=== PATIENT | male | born 1965 | race Caucasian/White ===

== ENCOUNTER 2019-01-06 19:11 | Observation (INO) ==
[2019-01-06] MEDS ORDERED: GI Cocktail 40 ML EACH PO ONE (19:42)
[2019-01-06] MEDS ORDERED: 0.9 % Sodium Chloride 500 ML IVC ONE (19:44)
[2019-01-06] MEDS: Nitroglycerin 0.4 MG TAB.SUBL SL PRN (20:05)
[2019-01-06 20:14] LABS: Basophils % 0.3 %; Eosinophils # 0.3 K/mcL (0.0-0.6); Eosinophils % 2.6 %; Hematocrit 41.3 % (37.5-50.1); Immature Granulocytes % 0.4 % (0-4); Lymphocytes # 2.8 K/mcL (0.6-4.6); Lymphocytes % 29.4 %; Mean Corpuscular HGB Conc 36.3 g/dL (31.6-35.5); Mean Corpuscular Hemoglobin 31.8 pg (28.0-33.3); Mean Corpuscular Volume 87.5 fL (83.0-100.0); Mean Platelet Volume 11.5 fL (9.4-12.4); Monocytes # 0.7 K/mcL (0.0-1.3); Monocytes % 7.6 %; Neutrophils # 5.7 K/mcL (1.6-8.9); Platelet Count 189 K/mcL (140-400); Red Blood Count 4.72 M/mcL (4.19-5.50); Red Cell Distribution Width 11.5 % (11.5-14.5); Segmented Neutrophils % 59.7 %
[2019-01-06 20:18] LABS: Troponin I < 0.03 ng/mL (< 0.04)
[2019-01-06 20:19] LABS: Alanine Aminotransferase 21 Units/L (7-52); Albumin 4.8 g/dL (3.5-5.7); Albumin/Globulin Ratio 1.7 (1.1-2.2); Alkaline Phosphatase 76 Units/L (34-104); Aspartate Amino Transferase 20 Units/L (13-39); BUN/Creatinine Ratio 10 (6-26); Bilirubin,Direct 0.1 mg/dL (0.0-0.2); Bilirubin,Indirect 0.6 mg/dL (0.0-1.2); Bilirubin,Total 0.7 mg/dL (0.3-1.0); Blood Urea Nitrogen 10 mg/dL (6-20); Calcium 9.9 mg/dL (8.6-10.3); Carbon Dioxide 27 mEq/L (23-29); Chloride 99 mEq/L (98-107); Globulin 2.8 g/dL (2.4-3.5); Glucose 133 mg/dL (70-105); Lipase 30 Units/L (11-82); Osmolality,Calculated 281 (280-300); Potassium 3.8 mEq/L (3.5-5.1); Sodium 135 mEq/L (136-145); Total Protein 7.6 g/dL (6.4-8.9); eGFR For Non-African Americans > 60 (> 60)
--- NOTE | 2019-01-06 20:30 | Emergency Department Note ---
Addendum entered and electronically signed by Richie Cross DO 01/06/19 20:50: EKG shows sinus rhythm, rate of 52, normal axis, no acute ischemic change Original Note: Disposition Clinical Impression: Unstable angina pectoris Disposition: Admitted As Inpatient Condition: Fair Time of Disposition: 20:49 Chest Pain HPI - General Chief Complaint: ED Chest Pain Stated Complaint: CP Time Seen by Provider: 01/06/19 19:23 Source: patient Mode of arrival: ambulatory Limitations: no limitations Vital Signs Reviewed: Yes Nursing Notes Reviewed: Yes - History of Present Illness HPI Narrative: Patient presents to the ED with chief complaint of chest pain. States that it started a few days ago. He was seen here about a week ago and was admitted over night, but did not have any further cardiac testing. He was here last night and had an evaluation, but was discharged home. He describes the pain is in his xiphoid region and radiates up into his chest. States that it is a very intense pressure and fullness. States that it is consistent with his previous [place] in 2011 and 2012. He states that his cardiac enzymes were normal. At that time as well and they only found blockages on heart catheter. He denies any fever or chills. There is no other abdominal pain. There is no nausea, vomiting, diarrhea. No diaphoresis. No pain or swelling in his legs. He has been scoped last year and does not have any history of ulcers. Severity scale (1-10): 7 - Related Data Home Medications Medication Instructions Recorded Confirmed RX: Amlodipine Besylate 10 mg PO DAILY 06/05/18 06/05/18 RX: Isosorbide MONOnitrate (24 HR) 30 mg PO DAILY 06/05/18 06/05/18 [Imdur] RX: Lisinopril [Zestril] 20 mg PO DAILY 06/05/18 06/05/18 RX: Paroxetine HCl [Paxil] 40 mg PO DAILY 06/05/18 06/05/18 RX: Propranolol HCl 80 mg PO DAILY 06/05/18 06/05/18 RX: Ranolazine [Ranexa] 1,000 mg PO DAILY 06/05/18 06/05/18 RX: Rosuvastatin [Crestor] 40 mg PO HS 06/05/18 06/05/18 RX: hydroCHLOROthiazide 25 mg PO DAILY 06/05/18 06/05/18 [Hydrochlorothiazide] Previous Rx's Medication Instructions Recorded RX: Aspirin Enteric Coated 81 mg PO DAILY #30 tablet. 06/07/18 [Aspirin EC] RX: Isosorbide MONOnitrate (24 HR) 60 mg PO DAILY #30 tab.er.24h 06/07/18 [Imdur] RX: Clopidogrel [Plavix] 75 mg PO DAILY #30 tablet 01/01/19 RX: Omeprazole [PriLOSEC] 40 mg PO DAILY@0630 #30 capsule. 01/01/19 Dicyclomine [Bentyl] 10 mg PO QID #20 capsule 01/06/19 Ondansetron ODT [Zofran ODT] 4 mg SL Q4HR #12 tab.rapdis 01/06/19 Allergies Allergy/AdvReac Type Severity Reaction Status Date / Time No Known Allergies Allergy Verified 01/06/19 19:18 Review of Systems: As reviewed in the HPI. All other systems reviewed are negative or normal. Chest Pain PMH - Past Medical History Medical history: Reports: coronary artery disease, hyperlipidemia, hypertension, myocardial infarction Surgical history: Reports: angioplasty/stent Psychiatric history: Reports: anxiety, depression - Social History Smoking Status: Former smoker Alcohol use: Reports: occasionally Drug use: Reports: none Physical Exam CONSTITUTIONAL: [well appearing, alert and in no acute distress] EYES: [EOMI, clear conjunctiva, PERRLA] HENT: [Normocephalic, atraumatic, moist mucus membranes, normal oropharynx] NECK: [normal inspection, full ROM, trachea midline, no obvious swelling] PULMONARY: [normal lung sounds bilaterally, normal chest rise and fall, no respiratory distress or stridor, no wheezes, no rales, no rhonchi CARDIOVASCULAR: [regular rate, regular rhythm, normal heart sounds, no murmurs, distal extremities are warm and well perfused] GASTROINSTESTINAL: [soft, non-tender, non-rigid, non-distended, no guarding, no rebound, normal bowel sounds] GENITOURINARY/RECTAL: [deferred] NEUROLOGIC: [Alert, oriented x3, normal speech, moves all extremities] EXTREMITIES: [Normal inspection, full ROM, no tenderness, no pedal edema, normal capillary refill] MUSCULOSKELETAL: [no gross deformities, atraumatic] SKIN: [No cyanosis, no diaphoresis, normal color, warm, no rash] PSYCHIATRIC: [normal mood and affect] - General Limitations: no limitations General appearance: alert, in no apparent distress Course Course Narrative: Patient presenting with his anginal equivalent. Patient does have left leg shaking, but does induce a rhythm on the monitor that looks like V. tach. I have not seen him have any suggestion of V. tach. When he is not moving his leg. However, he is having his anginal equivalent of chest pain that is been relieved by nitroglycerin, so we will start him on heparin drip and admitted in the hospital service - Reevaluation(s) Reevaluation #1: Workup is negative. He is still having pain. He states this is the same pain he had when he had his heart attacks. Spoke with hospitalist and was agreeable with starting heparin drip. We will admit and likely have cardiology see him in the morning for possible heart catheter. Vital Signs Temperature 97.6 F 01/06/19 19:19 Pulse Rate 57 01/06/19 19:19 Respiratory Rate 20 01/06/19 19:19 Blood Pressure 116/73 01/06/19 19:19 O2 Sat by Pulse Oximetry 99 01/06/19 19:19 Temperature 97.6 F 01/06/19 19:30 Pulse Rate 61 01/06/19 20:08 Respiratory Rate 11 01/06/19 20:08 Blood Pressure 121/76 01/06/19 20:08 O2 Sat by Pulse Oximetry 96 01/06/19 20:08 Oxygen Delivery Oxygen Delivery Room Air Chest Pain - Lab Data Result diagrams: 01/06/19 19:30 01/06/19 19:30 Lab Results 01/06/19 01/06/19 Range/Units 19:30 19:30 WBC 9.6 (4.3-11.1) K/mcL RBC 4.72 (4.19-5.50) M/mcL Hgb 15.0 (12.9-16.9) g/dL Hct 41.3 (37.5-50.1) % MCV 87.5 (83.0-100.0) fL MCH 31.8 (28.0-33.3) pg MCHC 36.3 H (31.6-35.5) g/dL RDW 11.5 (11.5-14.5) % Plt Count 189 (140-400) K/mcL MPV 11.5 (9.4-12.4) fL Immature Gran % 0.4 (0-4) % Seg Neutrophils % 59.7 % Lymphocytes % 29.4 % Monocytes % 7.6 % Eosinophils % 2.6 % Basophils % 0.3 % Neutrophils # 5.7 (1.6-8.9) K/mcL Lymphocytes # 2.8 (0.6-4.6) K/mcL Monocytes # 0.7 (0.0-1.3) K/mcL Eosinophils # 0.3 (0.0-0.6) K/mcL Basophils # 0.0 (0.0-0.2) K/mcL Sodium 135 L (136-145) mEq/L Potassium 3.8 (3.5-5.1) mEq/L Chloride 99 (98-107) mEq/L Carbon Dioxide 27 (23-29) mEq/L BUN 10 (6-20) mg/dL Creatinine 1.01 (0.70-1.30) mg/dL Est GFR ( Amer) > 60 (> 60) Est GFR (Non-Af Amer) > 60 (> 60) BUN/Creatinine Ratio 10 (6-26) Glucose 133 H (70-105) mg/dL Calculated Osmolality 281 (280-300) Calcium 9.9 (8.6-10.3) mg/dL Total Bilirubin 0.7 (0.3-1.0) mg/dL Direct Bilirubin 0.1 (0.0-0.2) mg/dL Indirect Bilirubin 0.6 (0.0-1.2) mg/dL AST 20 (13-39) Units/L ALT 21 (7-52) Units/L Alkaline Phosphatase 76 (34-104) Units/L Troponin I < 0.03 (< 0.04) ng/mL Serum Total Protein 7.6 (6.4-8.9) g/dL Albumin 4.8 (3.5-5.7) g/dL Globulin 2.8 (2.4-3.5) g/dL Albumin/Globulin Ratio 1.7 (1.1-2.2) Lipase 30 (11-82) Units/L Attestation Statement - Attestation Attestation: Resident Attestation: I examined this patient and my medical decision making was reviewed with the Resident Physician. I agree with the documented findings, disposition and treatment plan as described except to the extent set forth below. We independently had [id number] contact with the patient. Patient presenting for evaluation of chest pain. Patient has significant cardiac history. Further cardiac evaluation initiated. He was seen earlier in the day for abdominal complains. Patient states this is different. Patient did not improve with GI cocktail during visit. Awake, no acute distress, regular rate and rhythm, clear to auscultation bilaterally, abdomen soft nontender palpation.
[2019-01-06] MEDS ORDERED: *HR* Heparin 5,000 UNIT/ML VIAL IVP ONE (20:47)
[2019-01-06] MEDS ORDERED: Heparin 25,000 UNIT/500 ML D5W 25,000 UNIT/500 ML BAG IVC SCH (21:00)
[2019-01-07] MEDS: Nitroglycerin 0.4 MG TAB.SUBL SL PRN ×3 (01:02→01:23)
[2019-01-07] MEDS: *HR* Morphine 2 MG/ML SYRINGE IVP PRN ×2 (01:28→06:34)
[2019-01-07] MEDS ORDERED: Naloxone 0.4 MG/ML INJ IVP PRN (01:31)
--- NOTE | 2019-01-07 01:40 | Internal Med History&Physical ---
Date of Encounter: 01/07/19 Time of Encounter: 02:20 Internal Medicine - H&P: HPI Chief complaint: Chest pain Admitted From: Emergency Dept Plans for Post Hospital Care: Home History of present illness: Mr. Mccabe is a 53 year old male Patient presented to the emergency room with chest pain. He says it started a few days ago, is in the center of his chest and radiates up into his upper chest. He was admitted here to the hospital about a week ago, was monitored but did not receive any further cardiac testing. He describes the pain as pressure as well as fullness. It is similar to his previous [place] in 2013, and states at that time his cardiac enzymes were normal but he ended up having a heart catheter which revealed coronary disease. In the emergency room, patient's vital signs were within normal limits, CBC and BMP were both within normal limits as well. His initial troponin was undetectable. Chest x-ray revealed no acute cardiopulmonary process. EKG performed in the ER showed sinus rhythm with no acute ischemic changes. He was given a dose of nitroglycerin as well as a GI cocktail. 1 L of normal saline was also given and he was started on a heparin drip due to his history of undetectable troponins with cardiac disease. He was sent to the medical floor for further management. Upon arrival to the medical floor, patient's chest pain continued. Repeat EKG showed sinus bradycardia with a probable lateral myocardial infarction, likely old. 2 mg IV morphine was ordered for his pain. Pain has started to improve. Patient states that he has been having this pain on and off for the last 10 da ys. He says that the nitroglycerin actually made his pain worse. He denies abdominal pain, nausea, vomiting, diarrhea and constipation. He does have a significant family history of coronary artery disease, all members of his family have similar presentation with a troponin negative finding on their workups as well. Past Med Surg Social Fam HX - Past Medical History Medical history: coronary artery disease, hyperlipidemia, hypertension, myocardial infarction Additional medical history: x8 stents ([place], [place]) Psychiatric history: anxiety, depression - Past Surgical History Surgical History: angioplasty/stent Additional surgical history: plantar cyst removal, dermoid cyst removal, tympanoplasty R ear, 8 cardiac stents - Social History Smoking Status: Former smoker Smokeless Tobacco Status: No Alcohol use: occasionally Drug use: none - Family History Mother Living Status: Still Living Hx Family Cardiac Disorders: Yes (HTN) Father Living Status: Hx Family Cardiac Disorders: Yes (CAD, [place], Open heart surgery x2) Brother Living Status: Still Living Hx Family Cardiac Disorders: Yes (CAD) Sister Living Status: Still Living Hx Family Cardiac Disorders: Yes (CAD) Internal Medicine - H&P: Meds Amlodipine Besylate 10 mg PO DAILY 06/05/18 [History] Isosorbide MONOnitrate (24 HR) [Imdur] 30 mg PO DAILY 06/05/18 [History] Lisinopril [Zestril] 20 mg PO DAILY 06/05/18 [History] Paroxetine HCl [Paxil] 40 mg PO DAILY 06/05/18 [History] Propranolol HCl 80 mg PO DAILY 06/05/18 [History] Ranolazine [Ranexa] 1,000 mg PO DAILY 06/05/18 [History] Rosuvastatin [Crestor] 40 mg PO HS 06/05/18 [History] hydroCHLOROthiazide [Hydrochlorothiazide] 25 mg PO DAILY 06/05/18 [History] Aspirin Enteric Coated [Aspirin EC] 81 mg PO DAILY #30 tablet. 06/07/18 [Rx] Isosorbide MONOnitrate (24 HR) [Imdur] 60 mg PO DAILY #30 tab.er.24h 06/07/18 [Rx] Clopidogrel [Plavix] 75 mg PO DAILY #30 tablet 01/01/19 [Rx] Omeprazole [PriLOSEC] 40 mg PO DAILY@0630 #30 capsule. 01/01/19 [Rx] Dicyclomine [Bentyl] 10 mg PO QID #20 capsule 01/06/19 [Rx] Ondansetron ODT [Zofran ODT] 4 mg SL Q4HR #12 tab.rapdis 01/06/19 [Rx] Allergy/AdvReac Type Severity Reaction Status Date / Time No Known Allergies Allergy Verified 01/06/19 19:18 All Systems PM: A 10-system review of systems was performed and is negative for pertinent findings except as documented above in the HPI. - Constitutional Vitals: Temp Pulse Resp BP Pulse Ox 97.9 F 58 16 116/70 97 01/06/19 21:42 01/06/19 21:42 01/06/19 21:42 01/06/19 21:42 01/06/19 21:42 General appearance: Present: cooperative, mild distress, A&O X 3, pleasant, answers questions appropriately Exam: - - Head Head exam: Present: normal inspection - Eye Eye exam: Present: EOMI, normal appearance - Respiratory Respiratory exam: Present: CTAB. Absent: rales, respiratory distress, rhonchi, wheezes - Cardiovascular Cardiovascular exam: Present: RRR. Absent: diastolic murmur, systolic murmur - GI/Abdominal GI/Abdominal exam: Present: normal bowel sounds, soft. Absent: tenderness - Extremities Exam Extremities exam: Present: warm, radial pulses palpable and symmetrical. Absent: pedal edema, tenderness - Neurological Exam Neurological exam: Present: no focal deficits, strengths equal and symetr throughout. Absent: motor sensory deficit, facial droop, speech deficit - Skin Skin exam: Present: dry, normal color, warm Internal Med - H&P Results - Labs CBC & Chem 7: 01/07/19 01:47 01/07/19 01:47 Labs: Short CBC 01/06/19 Range/Units 19:30 WBC 9.6 (4.3-11.1) K/mcL Hgb 15.0 (12.9-16.9) g/dL Hct 41.3 (37.5-50.1) % Plt Count 189 (140-400) K/mcL Neutrophils # 5.7 (1.6-8.9) K/mcL BMP 01/06/19 19:30 Sodium 135 L Potassium 3.8 Chloride 99 Carbon Dioxide 27 BUN 10 Creatinine 1.01 Glucose 133 H Calcium 9.9 Cardiac Enzymes 01/06/19 Range/Units 19:30 Troponin I < 0.03 (< 0.04) ng/mL Liver Function 01/06/19 Range/Units 19:30 Total Bilirubin 0.7 (0.3-1.0) mg/dL Direct Bilirubin 0.1 (0.0-0.2) mg/dL AST 20 (13-39) Units/L ALT 21 (7-52) Units/L Alkaline Phosphatase 76 (34-104) Units/L Albumin 4.8 (3.5-5.7) g/dL - Impressions ITS Impressions Chest X-Ray 01/06/19 19:45 IMPRESSION: No acute abnormality detected. D/ / Murtaza Muniz MD / Murtaza Muniz MD Interpreting Provider: Murtaza Muniz MD - Assessment and plan (1) Chest pain Current Visit: No Status: Acute Assessment and plan: Patient's chest pain has improved with the morphine IV. Troponins have continue to be undetectable. Continue to trend troponins Cardiac monitoring Cardiology consult in the morning Nothing by mouth diet Morphine as needed for pain control Qualifiers: Chest pain type: other chest pain Qualified Code(s): R07.89 - Other chest pain; R07.8 - Other chest pain (2) HTN (hypertension) Current Visit: No Status: Chronic Assessment and plan: Patient has history of hypertension, takes amlodipine, lisinopril, propranolol and hydrochlorothiazide at home. Monitor blood pressures Hold home meds, restart her discharge Qualifiers: Hypertension type: essential hypertension Qualified Code(s): I10 - [facility] l (primary) hypertension (3) GERD (gastroesophageal reflux disease) Current Visit: No Status: Chronic Assessment and plan: Patient takes omeprazole at home. He did have endoscopy within the last year t hat was negative for abnormalities. Continue to monitor Qualifiers: Esophagitis presence: esophagitis presence not specified Qualified Code(s): K21.9 - Gastro-esophageal reflux disease without esophagitis (4) HLD (hyperlipidemia) Current Visit: No Status: Chronic Assessment and plan: Takes crestor at home Continue home meds at discharge. Qualifiers: Hyperlipidemia type: pure hypercholesterolemia Qualified Code(s): E78.00 - Pure hypercholesterolemia, unspecified; E78.0 - Pure hypercholesterolemia (5) DVT prophylaxis Current Visit: No Status: Acute Assessment and plan: Heparin drip - Time Spent With Patient Total time spent is greater than 50% in coordination of care (as documented) at patient's floor/unit and/or counseling patient: Greater than 35 minutes
[2019-01-07 02:06] LABS: Hematocrit 38.1 % (37.5-50.1); Hemoglobin 13.8 g/dL (12.9-16.9); Mean Corpuscular HGB Conc 36.2 g/dL (31.6-35.5); Mean Corpuscular Hemoglobin 31.9 pg (28.0-33.3); Mean Corpuscular Volume 88.2 fL (83.0-100.0); Mean Platelet Volume 11.1 fL (9.4-12.4); Platelet Count 162 K/mcL (140-400); Red Blood Count 4.32 M/mcL (4.19-5.50); Red Cell Distribution Width 11.6 % (11.5-14.5)
[2019-01-07 02:26] LABS: BUN/Creatinine Ratio 11 (6-26); Blood Urea Nitrogen 10 mg/dL (6-20); Calcium 9.2 mg/dL (8.6-10.3); Carbon Dioxide 25 mEq/L (23-29); Chloride 102 mEq/L (98-107); Glucose 124 mg/dL (70-105); Osmolality,Calculated 284 (280-300); Potassium 3.7 mEq/L (3.5-5.1); Sodium 137 mEq/L (136-145); eGFR For Non-African Americans > 60 (> 60)
[2019-01-07] MEDS ORDERED: Ondansetron ODT 4 MG TAB.RAPDIS SL PRN (08:00)
[2019-01-07] MEDS ORDERED: Ranolazine 500 MG TAB.ER.12H PO SCH (09:00)
--- NOTE | 2019-01-07 10:22 | Cardiology Consult Note ---
<Taras Leal - Last Filed: 01/07/19 14:07> Date of Encounter: 01/07/19 Time of Encounter: 10:20 Assessment and Plan (1) Chest pain Current Visit: Yes Status: Acute Patient presented for epigastric/chest pain with upward radiation, occurring at rest, worse with nitro EKG NSR, troponins negative, CXR benign, pain improved with morphine, labs/vitals normal Was worked up here last week for the same thing, discharged with outpatient GI /Cardio follow up Most recent echo 12/31/18 normal, stress test May 2018 without ischemia/infarct, no recent cath Latest cath 2014 in [place] without PCI, PCIx3 in 2011 and PCIx5 in 2012 Patient on Norvasc, Imdur, Zestril, Propanolol, Ranexa, Crestor, HCTZ, ASA, Plavix Differentials include ischemia vs reflux Stress test ordered and pending GI consulted, likely EGD pending Recommendations I highly suspect this is reflux, however given history of troponin negative CAD will continue with stress Recommend GI involvement with EGD to prevent further discharge and re-admit If stress negative likely will not require further cardiac work up Further recommendations per Dr Holly Qualifiers: Chest pain type: other chest pain Qualified Code(s): R07.89 - Other chest pain; R07.8 - Other chest pain (2) CAD (coronary artery disease) Current Visit: Yes Status: Chronic Patient with history of CAD as detailed above Qualifiers: Coronary Disease-Associated Artery/Lesion type: [place] artery [place] vs. transplanted heart: [place] heart Associated angina: angina presence unspecified Qualified Code(s): I25.10 - Atherosclerotic heart disease of [place] coronary artery without angina pectoris (3) GERD (gastroesophageal reflux disease) Current Visit: No Status: Chronic Patient with known history of reflux GI consult pending Management per hospitalist team Qualifiers: Esophagitis presence: esophagitis presence not specified Qualified Code(s): K21.9 - Gastro-esophageal reflux disease without esophagitis Discussion w patient/family: The assessment and plan as outlined above was discussed with the patient and/or family members who expressed understanding and agreement. All questions were answered. Thank you for involving us in the care of your patient. Please call with any questions. History of Present Illness Consult date: 01/07/19 Requesting physician: Joseph Waite Consult reason: chest pain, history of troponin negative CAD Chief complaint: chest pain History of present illness: Mr. Mccabe is a 53 year old male with a past medical history of CAD with PC Ix3(2011) and PCIx5(2013), HLD, HTN, [place]. He apparently has a history of abnormal caths after normal troponins/stresses. He presented with the chief complaint of chest pain for several days. Apparently the chest pain is epigastric with upwards radiation. These pains occurred at rest and Nitro made them worse. In the ED EKG was NSR. Troponins negative. He was admitted for the same issue last week and discharged after work up with outpatient GI and Cardiology follow up which have not occurred yet. Recent work up includes normal echo on 12/31/18 and normal stress May 2018. Most recent catheterization 2014 in [place] without intervention. Cardiology consulted for repeat chest pain. Past Med Surg Social Fam HX - Past Medical History Medical history: coronary artery disease, hyperlipidemia, hypertension, myocardial infarction Additional medical history: x8 stents ([place], [place]) Psychiatric history: anxiety, depression - Past Surgical History Surgical History: angioplasty/stent Additional surgical history: plantar cyst removal, dermoid cyst removal, tympanoplasty R ear, 8 cardiac stents - Social History Smoking Status: Former smoker Smokeless Tobacco Status: No Alcohol use: occasionally Drug use: none - Family History Mother Living Status: Still Living Hx Family Cardiac Disorders: Yes (HTN) Father Living Status: Hx Family Cardiac Disorders: Yes (CAD, [place], Open heart surgery x2) Brother Living Status: Still Living Hx Family Cardiac Disorders: Yes (CAD) Sister Living Status: Still Living Hx Family Cardiac Disorders: Yes (CAD) Medications and Allergies Amlodipine Besylate 10 mg PO DAILY 06/05/18 [History] Isosorbide MONOnitrate (24 HR) [Imdur] 30 mg PO DAILY 06/05/18 [History] Lisinopril [Zestril] 20 mg PO DAILY 06/05/18 [History] Paroxetine HCl [Paxil] 40 mg PO DAILY 06/05/18 [History] Propranolol HCl 80 mg PO DAILY 06/05/18 [History] Ranolazine [Ranexa] 1,000 mg PO DAILY 06/05/18 [History] Rosuvastatin [Crestor] 40 mg PO HS 06/05/18 [History] hydroCHLOROthiazide [Hydrochlorothiazide] 25 mg PO DAILY 06/05/18 [History] Aspirin Enteric Coated [Aspirin EC] 81 mg PO DAILY #30 tablet. 06/07/18 [Rx] Isosorbide MONOnitrate (24 HR) [Imdur] 60 mg PO DAILY #30 tab.er.24h 06/07/18 [Rx] Clopidogrel [Plavix] 75 mg PO DAILY #30 tablet 01/01/19 [Rx] Omeprazole [PriLOSEC] 40 mg PO DAILY@0630 #30 capsule. 01/01/19 [Rx] Dicyclomine [Bentyl] 10 mg PO QID #20 capsule 01/06/19 [Rx] Ondansetron ODT [Zofran ODT] 4 mg SL Q4HR #12 tab.rapdis 01/06/19 [Rx] Allergy/AdvReac Type Severity Reaction Status Date / Time No Known Allergies Allergy Verified 01/06/19 19:18 All Systems Review: The remainder of the systems were reviewed and are negative - Constitutional Constitutional: no chills, no fever(s) - Cardiovascular Cardiovascular: chest pain at rest, dyspnea on exertion, no chest pain with exertion, no dyspnea at rest, no irregular heart rhythm, no radiating jaw, neck or arm pain, no palpitations, no syncope - Respiratory Respiratory: no cough, no dyspnea - Gastrointestinal Gastrointestinal: abdominal pain, nausea - Musculoskeletal Musculoskeletal: no muscle weakness - Integumentary Integumentary: no erythema, no rash - Neurological Neurological: no abnormal speech, no focal weakness - Psychiatric Psychiatric: anxiety - Hematological/Lymphatic Hematologic/Lymphatic: no easy bleeding, no easy bruising Physical Examination Vital Signs, Last 4 Hours Temp Pulse Resp BP Pulse Ox 01/07/19 07:56 98.6 F 60 12 125/80 99 01/07/19 07:32 98.2 F 57 14 123/76 97 General: Conversant, No Apparent Distress HEENT: Atraumatic, Normocephaly, Mucus Membranes Moist Neck: No JVD, Normal carotid pulses Cardiac: Reg Rate and Rhythm, Normal S1 and S2, No Murmur Lungs: Normal Breath Sounds, No Wheeze, Rales, Rhonchi Neuro: Alert and responsive, No focal deficits noted Abdomen: Soft, Non-Tender Skin: No rashes noted on visualized skin Musculoskeletal: No Chest Wall Tenderness Extremities: No Edema, Normal Pulses Results 01/07/19 01:47 01/07/19 01:47 Lab Results 01/06/19 01/06/19 01/07/19 19:30 19:30 01:47 WBC 9.6 Hgb 15.0 Hct 41.3 Plt Count 189 Sodium 135 L Potassium 3.8 Chloride 99 Carbon Dioxide 27 BUN 10 Creatinine 1.01 Glucose 133 H Calcium 9.9 Total Bilirubin 0.7 AST 20 ALT 21 Alkaline Phosphatase 76 Troponin I < 0.03 < 0.03 Lipase 30 01/07/19 01/07/19 01/07/19 01:47 01:47 07:15 WBC 8.3 Hgb 13.8 Hct 38.1 Plt Count 162 Sodium 137 Potassium 3.7 Chloride 102 Carbon Dioxide 25 BUN 10 Creatinine 0.90 Glucose 124 H Calcium 9.2 Total Bilirubin AST ALT Alkaline Phosphatase Troponin I < 0.03 Lipase - Imaging and Cardiology Chest Xray: report reviewed Stress Test: pending Echo: report reviewed - EKG Interpretation EKG results cardiology: personally reviewed, normal ECG, sinus rhythm Consult Discharge Plan - Plan Referrals: Art Singer MD [Primary Care Provider] - (Your appointment has been requested. Our offices will call with an appointment time and date.) <Jenaro Holly - Last Filed: 01/07/19 17:03> Date of Encounter: 01/07/19 - Attending Attestation Patient was seen and evaluated independently by me. Findings, assessment and plan were discussed at length with patient, questions answered. Agree with nurse practitioner's/resident's documentation. Addition as follows, 53 yoCM ho CAD PCIs, HTN, DM, GERD. P/w recurrent non-exertional atypical epigastric pain worsened by NTG. No ischemic ECG changes. TTE ef 65%, LVH, RVnl, LAE, mild TR, no PH. Ex SPECT today no ischemia or infarct, METs 12.8. VSS, CTA, RR, no LE edema A: Non-anginal epigastric pain, GI eitology likely (hiatal hernia, GERD, gastritis) Ho CAD PCI GERD P: GI consult for EGD c/w home DAPT, statin, imdur cardiology clinic f/u Jenaro Holly MD, PhD Assessment and Plan Discussion w patient/family: The assessment and plan as outlined above was discussed with the patient and/or family members who expressed understanding and agreement. All questions were answered. Thank you for involving us in the care of your patient. Please call with any questions. History of Present Illness History of present illness: Mr. Mccabe is a 53 year old male All Systems Review: The remainder of the systems were reviewed and are negative Physical Examination Vital Signs, Last 4 Hours Temp Pulse Resp BP Pulse Ox 01/07/19 16:33 60 16 90/55 96 01/07/19 16:18 98.0 F 71 14 156/78 97 01/07/19 16:05 98.3 F 64 18 94/60 95 01/07/19 16:00 58 18 98/54 92 01/07/19 15:55 54 18 110/68 98 01/07/19 15:49 56 18 110/68 100 Results 01/07/19 01:47 01/07/19 01:47 Lab Results 01/06/19 01/06/19 01/07/19 19:30 19:30 01:47 WBC 9.6 Hgb 15.0 Hct 41.3 Plt Count 189 Sodium 135 L Potassium 3.8 Chloride 99 Carbon Dioxide 27 BUN 10 Creatinine 1.01 Glucose 133 H Calcium 9.9 Total Bilirubin 0.7 AST 20 ALT 21 Alkaline Phosphatase 76 Troponin I < 0.03 < 0.03 Lipase 30 01/07/19 01/07/19 01/07/19 01:47 01:47 07:15 WBC 8.3 Hgb 13.8 Hct 38.1 Plt Count 162 Sodium 137 Potassium 3.7 Chloride 102 Carbon Dioxide 25 BUN 10 Creatinine 0.90 Glucose 124 H Calcium 9.2 Total Bilirubin AST ALT Alkaline Phosphatase Troponin I < 0.03 Lipase
--- NOTE | 2019-01-07 10:58 | Gastroenterology Consult Note ---
Date of Encounter: 01/07/19 - Time Spent With Patient Total time spent is greater than 50% in coordination of care (as documented) at patient's floor/unit and/or counseling patient: GI History of Present Illness - Data of Consult Requesting Physician: Joseph Waite MD - Consult Narrative History of present illness: Mr. Mccabe is a 53 year old male Past Med Surg Social Fam HX - Past Medical History Medical history: coronary artery disease, hyperlipidemia, hypertension, myocardial infarction Additional medical history: x8 stents ([place], [place]) Psychiatric history: anxiety, depression - Past Surgical History Surgical History: angioplasty/stent Additional surgical history: plantar cyst removal, dermoid cyst removal, tym panoplasty R ear, 8 cardiac stents - Social History Smoking Status: Former smoker Smokeless Tobacco Status: No Alcohol use: occasionally Drug use: none - Family History Mother Living Status: Still Living Hx Family Cardiac Disorders: Yes (HTN) Father Living Status: Hx Family Cardiac Disorders: Yes (CAD, [place], Open heart surgery x2) Brother Living Status: Still Living Hx Family Cardiac Disorders: Yes (CAD) Sister Living Status: Still Living Hx Family Cardiac Disorders: Yes (CAD) - Constitutional Vitals: Temp Pulse Resp BP Pulse Ox 98.6 F 60 12 125/80 99 01/07/19 07:56 01/07/19 07:56 01/07/19 07:56 01/07/19 07:56 01/07/19 07:56 Results - Labs CBC & Chem 7: 01/07/19 01:47 01/07/19 01:47 Labs: Last Result Calcium 9.2 mg/dL (8.6-10.3) 01/07/19 01:47 Troponin I < 0.03 ng/mL (< 0.04) 01/07/19 07:15 Entire Visit Hgb 13.8 g/dL (12.9-16.9) 01/07/19 01:47 Hct 38.1 % (37.5-50.1) 01/07/19 01:47 Total Bilirubin 0.7 mg/dL (0.3-1.0) 01/06/19 19:30 AST 20 Units/L (13-39) 01/06/19 19:30 ALT 21 Units/L (7-52) 01/06/19 19:30 Lipase 30 Units/L (11-82) 01/06/19 19:30 - Impressions Impressions Chest X-Ray 01/06/19 19:45 IMPRESSION: No acute abnormality detected. D/ / Murtaza Muniz MD / Murtaza Muniz MD Interpreting Provider: Murtaza Muniz MD Consult Discharge Plan - Plan Referrals: Art Singer MD [Primary Care Provider] - (Your appointment has been requested. Our offices will call with an appointment time and date.)
--- NOTE | 2019-01-07 11:03 | Event Note ---
Date of Encounter: 01/07/19 Time of Encounter: 10:30 Attempted to see patient several times, but he was completing stress test. Patient was admitted for evaluation of chest pain. Last week he was admitted for chest pain and discharged with instructions to follow up with GI and Cardiology. During last admission echo was normal. Cardiology believes the pain is GI related, and recommends GI workup. Plan for EGD today to r/o esophagitis, gastritis, duodenitis, PUD, MW tear, or AVM.. Keep patient NPO. Full consult tomorrow.
[2019-01-07] MEDS: Aspirin Enteric Coated 81 MG Tablet PO SCH (11:57)
[2019-01-07] MEDS: Isosorbide MONOnitrate (24 HR) 30 MG TAB.ER.24H PO SCH (11:57)
[2019-01-07] MEDS: Lisinopril 20 MG TABLET PO SCH (11:57)
[2019-01-07] MEDS: amLODIPine 5 MG TABLET PO SCH (11:58)
[2019-01-07] MEDS: hydroCHLOROthiazide 25 MG TABLET PO SCH (11:58)
[2019-01-07] MEDS: Propranolol LA (24 HR) 80 MG CAP.SA.24H PO SCH (11:58)
--- NOTE | 2019-01-07 13:43 | Anesthesia Evaluation PreOp ---
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 Significant HX Other Medical History: GERD, Other (anxiety/depression) Anesthesia History: Past Anesthesia Alcohol Use: occasionally Drug use: none Medications and Allergies Amlodipine Besylate 10 mg PO DAILY 06/05/18 [History] Isosorbide MONOnitrate (24 HR) [Imdur] 30 mg PO DAILY 06/05/18 [History] Lisinopril [Zestril] 20 mg PO DAILY 06/05/18 [History] Paroxetine HCl [Paxil] 40 mg PO DAILY 06/05/18 [History] Propranolol HCl 80 mg PO DAILY 06/05/18 [History] Ranolazine [Ranexa] 1,000 mg PO DAILY 06/05/18 [History] Rosuvastatin [Crestor] 40 mg PO HS 06/05/18 [History] hydroCHLOROthiazide [Hydrochlorothiazide] 25 mg PO DAILY 06/05/18 [History] Aspirin Enteric Coated [Aspirin EC] 81 mg PO DAILY #30 tablet. 06/07/18 [Rx] Isosorbide MONOnitrate (24 HR) [Imdur] 60 mg PO DAILY #30 tab.er.24h 06/07/18 [Rx] Clopidogrel [Plavix] 75 mg PO DAILY #30 tablet 01/01/19 [Rx] Omeprazole [PriLOSEC] 40 mg PO DAILY@0630 #30 capsule. 01/01/19 [Rx] Dicyclomine [Bentyl] 10 mg PO QID #20 capsule 01/06/19 [Rx] Ondansetron ODT [Zofran ODT] 4 mg SL Q4HR #12 tab.rapdis 01/06/19 [Rx] Allergy/AdvReac Type Severity Reaction Status Date / Time No Known Allergies Allergy Verified 01/06/19 19:18 - Meds/Allergy Pre-op Review Medications Reviewed: Yes Allergies Reviewed: Yes Beta Blockers on Current Med List: Yes If Beta Blockers taken, Date/Time (Last Dose taken): 01/07/2019 at 1158 Anesthesia Results - Labs 01/07/19 01:47 01/07/19 01:47 - Imaging EKG: report reviewed (12/27/2018 Sinus rhythm) Chest x-ray: report reviewed (01/06/2019 IMPRESSION: No acute abnormality detected.) Additional studies: 12/31/2018 Echo Impressions: LVEF 65%. Normal LV chamber size, wall thickness and function. Mild concentric left ventricular hypertrophy. Mildly dilated left atrium. Normal right ventricular structure and function. Mild tricuspid regurgitation. No pulmonary hypertension. 06/06/2018 Stress Impression: Perfusion imaging was negative for ischemia or infarct. Pharmacologic stress ECG is negative for ischemia at level of heart rate achieved. No appreciable change from baseline ECG. Patient had 1/10 left upper chest burning during pharmacologic stress. Recommend clinical correlation. Gated EF > 70%. Anesthesia Exam Vital Signs/O2 Sat, Most Current Temp Pulse Resp BP Pulse Ox 98.4 F 63 14 118/69 69 01/07/19 11:53 01/07/19 11:53 01/07/19 11:53 01/07/19 11:53 01/07/19 11:53 Height: 5'11''/1.8m Weight: 215 lbs/97.8 kg Anesthesia Assess/Plan ASA Score: 3 Level of consciousness: Cooperative, Oriented, Tranquil Anesthetic Plan: MAC Monitoring Plan: Standard Monitors
[2019-01-07] MEDS ORDERED: Acetaminophen 325 MG TABLET PO PRN (14:12)
[2019-01-07] MEDS ORDERED: *HR* Midazolam HCl 5 MG/5 ML VIAL IVP ONE ×2 (15:42→15:57)
[2019-01-07] MEDS ORDERED: *HR* FentaNYL (PF) 100 MCG/2 ML VIAL ONE (15:42)
[2019-01-07] MEDS ORDERED: Tetracaine/Benzocaine/Butamben 1 SPRAY AEROSOL MM ONE (15:57)
[2019-01-07] MEDS ORDERED: Simethicone 40 MG/0.6 ML MLS IR ONE (15:57)
[2019-01-07] MEDS ORDERED: *HR* FentaNYL (PF) 100 MCG/2 ML VIAL IVP ONE (15:57)
--- NOTE | 2019-01-07 20:52 | Electrocardiograph Report ---
[address] [place] [address] Test Date: 2019-01-07 Pat Name: Jose A Mccabe Department: 113 Room: 3B48 Gender: M Environmental Services Worker: : 1965 Requested By: Mary Jennings Order Number: [id number] Reading MD: Paloma Birmingham Measurements Intervals [place] Rate: 56 P: 41 WI: 152 QRS: 13 QRSD: 116 T: 7 QT: 461 QTc: 452 Interpretive Statements SINUS BRADYCARDIA LATERAL MYOCARDIAL INFARCTION, PROBABLY OLD Electronically Signed On 01-07-2019 20:50:35 EST by Paloma Birmingham
--- NOTE | 2019-01-07 20:56 | Electrocardiograph Report ---
[address] [place] [address] Test Date: 2019-01-06 Pat Name: Jose A Mccabe Department: [id number] Room: 3B Gender: M Research Animal Attendant: : 1965 Requested By: Richie Cross Order Number: [id number] Reading MD: Paloma Birmingham Measurements Intervals [place] Rate: 52 P: 63 ME: 158 QRS: 47 QRSD: 104 T: 16 QT: 502 QTc: 467 Interpretive Statements Sinus rhythm Electronically Signed On 01-07-2019 20:55:28 EST by Paloma Birmingham
--- NOTE | 2019-01-07 21:00 | Electrocardiograph Report ---
[address] [place] [address] Test Date: 2019-01-07 Pat Name: Jose A Mccabe Department: 113 Room: 3B48 Gender: M Director Advanced: : 1965 Requested By: Joseph Waite Order Number: [id number] Reading MD: Paloma Birmingham Measurements Intervals [place] Rate: 53 P: 38 GA: 156 QRS: 31 QRSD: 99 T: 15 QT: 486 QTc: 470 Interpretive Statements SINUS BRADYCARDIA PROBABLE LATERAL MYOCARDIAL INFARCTION, PROBABLY OLD Electronically Signed On 01-07-2019 20:59:24 EST by Paloma Birmingham
[2019-01-07] MEDS: Ranolazine 500 MG TAB.ER.12H PO SCH (21:56)
[2019-01-08 06:09] LABS: Basophils % 0.3 %; Eosinophils # 0.1 K/mcL (0.0-0.6); Eosinophils % 2.1 %; Hematocrit 37.4 % (37.5-50.1); Hemoglobin 13.2 g/dL (12.9-16.9); Immature Granulocytes % 0.1 % (0-4); Mean Corpuscular HGB Conc 35.3 g/dL (31.6-35.5); Mean Corpuscular Hemoglobin 31.9 pg (28.0-33.3); Mean Corpuscular Volume 90.3 fL (83.0-100.0); Mean Platelet Volume 11.3 fL (9.4-12.4); Monocytes # 0.5 K/mcL (0.0-1.3); Monocytes % 6.9 %; Neutrophils # 4.1 K/mcL (1.6-8.9); Platelet Count 139 K/mcL (140-400); Red Blood Count 4.14 M/mcL (4.19-5.50); Red Cell Distribution Width 11.7 % (11.5-14.5); Segmented Neutrophils % 60.6 %
[2019-01-08 06:38] LABS: BUN/Creatinine Ratio 12 (6-26); Blood Urea Nitrogen 11 mg/dL (6-20); Calcium 8.9 mg/dL (8.6-10.3); Carbon Dioxide 27 mEq/L (23-29); Chloride 102 mEq/L (98-107); Glucose 121 mg/dL (70-105); Osmolality,Calculated 287 (280-300); Potassium 3.6 mEq/L (3.5-5.1); Sodium 138 mEq/L (136-145); eGFR For Non-African Americans > 60 (> 60)
[2019-01-08] MEDS ORDERED: Baclofen 10 MG TABLET PO PRN (08:57)
[2019-01-08] MEDS ORDERED: Acetaminophen/Butalbital/CaffeineTABLET PO PRN (08:57)
[2019-01-08] MEDS ORDERED: NON-FORMULARY MEDICATION 1 EACH EACH (Amlodipine Besylate [Amlodipine Besylate] 10 MG) PO SCH (09:00)
[2019-01-08] MEDS ORDERED: Cholecalciferol (D-3) 1,000 UNIT TABLET PO SCH (09:00)
[2019-01-08] MEDS ORDERED: PROPRANOLOL HCL 80 MG PO SCH (09:00)
[2019-01-08] MEDS ORDERED: Isosorbide MONOnitrate (24 HR) 30 MG TAB.ER.24H PO SCH (09:00)
[2019-01-08] MEDS ORDERED: LISINOPRIL 20 MG PO SCH (09:00)
[2019-01-08] MEDS: Ranolazine 500 MG TAB.ER.12H PO SCH (09:03)
[2019-01-08] MEDS: Lisinopril 20 MG TABLET PO SCH (09:04)
[2019-01-08] MEDS: Aspirin Enteric Coated 81 MG Tablet PO SCH (09:04)
[2019-01-08] MEDS: amLODIPine 5 MG TABLET PO SCH (09:04)
[2019-01-08] MEDS: Isosorbide MONOnitrate (24 HR) 30 MG TAB.ER.24H PO SCH (09:04)
[2019-01-08] MEDS: hydroCHLOROthiazide 25 MG TABLET PO SCH (09:04)
[2019-01-08] MEDS: Propranolol LA (24 HR) 80 MG CAP.SA.24H PO SCH (09:07)
--- NOTE | 2019-01-08 09:13 | Gastroenterology Consult Note ---
<Wolfgang Smith - Last Filed: 01/08/19 10:01> Date of Encounter: 01/08/19 Time of Encounter: 08:35 - Assessment and plan (1) Epigastric pain Current Visit: Yes Status: Acute Assessment and plan: -Gastritis vs biliary colic -2 weeks epigastric pain with radiation to chest worse positionally and postprandial with all foods who was admitted for chest pain -Cardiac workup negative -EGD yesterday with evidence of gastritis and a small hiatal hernia -Gall bladder US with small amount of sludge but no evidence of cholelithiasis, choledocholithiasis, or acute cholecystitis -Biopsies from EGD pending pathology -Continue daily ppi now and will see followup in clinic in 3-4 weeks to review path results and if continues to have epigastric pain will get HIDA - Time Spent With Patient Total time spent is greater than 50% in coordination of care (as documented) at patient's floor/unit and/or counseling patient: GI History of Present Illness - Data of Consult Patient: new to practice Consult date: 01/08/19 Requesting Physician: Joseph Waite MD - Consult Narrative Reason for consult: Epigastric pain History of present illness: Mr. Mccabe is a 53 year old male with pmh significant for CAD s/p 8 stents, HTN, HLD and GERD. He was admitted for chest pain on 01/07/19. He has had intermittent epigastric pain and bloating for the last 10 days that becomes substernal chest pressure and thinks he is having AR as this pain similar to previous AR. He tried sl nitro which worsened the pain when he thought it was angina. The pain is worse postprandial with all food types and worsens positionally when he lays flat and improves with sitting upright. He has been taking a ppi for about 5 years without recent reflux symptoms. He denies cough, acid taste in mouth, hiccups, belching, dyspnea, abdominal pain elsewhere, N/V, hematemesis, melena, NSAID use. He was evaluated by cardiology with stress test which was negative for ischemia and had EGD yesterday with evidence of gastritis and a small hiatal hernia. Gallbladder US with minimal sludge but no evidence of cholelithiasis, choledocholithiasis, or acute cholecystitis. Past Med Surg Social Fam HX - Past Medical History Medical history: coronary artery disease, hyperlipidemia, hypertension, myocardial infarction Additional medical history: x8 stents ([place], [place]) Psychiatric history: anxiety, depression - Past Surgical History Surgical History: angioplasty/stent Additional surgical history: plantar cyst removal, dermoid cyst removal, tympa noplasty R ear, 8 cardiac stents - Social History Smoking Status: Former smoker Smokeless Tobacco Status: No Alcohol use: occasionally Drug use: none - Family History Brother Living Status: Still Living Hx Family Cardiac Disorders: Yes (CAD) Father Living Status: Hx Family Cardiac Disorders: Yes (CAD, AR, Open heart surgery x2) Mother Living Status: Still Living Hx Family Cardiac Disorders: Yes (HTN) Sister Living Status: Still Living Hx Family Cardiac Disorders: Yes (CAD) - Constitutional Vitals: Temp Pulse Resp BP Pulse Ox 97.8 F 58 16 109/70 99 01/08/19 07:22 01/08/19 07:22 01/08/19 07:22 01/08/19 07:22 01/08/19 07:22 General appearance: Present: cooperative, A&O X 3, pleasant, no acute distress, answers questions appropriately - Head Head exam: Present: atraumatic, normal inspection, normocephalic - Eye Eye exam: Present: normal appearance. Absent: scleral icterus - ENT ENT exam: Present: mucous membranes dry - Neck Neck exam general surgery: Present: supple, trachea midline - Respiratory Respiratory exam: Present: CTAB. Absent: accessory muscle use, chest wall tenderness, decreased breath sounds, prolonged expiratory phase, rales, respiratory distress, rhonchi, stridor, wheezes, tachypnea - Cardiovascular Cardiovascular exam: Present: RRR, +S1, +S2. Absent: bradycardia, clicks, diastolic murmur, distant heart sounds, gallop, irregular rhythm, JVD, rubs, +S3, +S4, systolic murmur, tachycardia - GI/Abdominal GI/Abdominal exam: Present: soft, no peritoneal signs. Absent: distended, firm, guarding, hepatomegaly, rebound, rigid, splenomegaly, tenderness - Extremities Exam Extremities exam: Present: normal capillary refill, normal inspection, warm, radial pulses palpable and symmetrical. Absent: calf tenderness, cyanotic, pedal edema, tenderness - Neurological Exam Neurological exam: Present: alert, CN II-XII intact, no focal deficits. Absent: facial droop, speech deficit - Psychiatric Psychiatric exam: Present: normal affect, normal mood - Skin Skin exam: Present: dry, intact, normal color, warm. Absent: abrasion, cyanosis, diaphoretic, erythema, excoriation, mottled, pallor, petechiae, rash, urticaria, vesicles Results - Labs CBC & Chem 7: 01/08/19 05:36 01/08/19 05:36 Labs: Last Result Calcium 8.9 mg/dL (8.6-10.3) 01/08/19 05:36 Troponin I < 0.03 ng/mL (< 0.04) 01/07/19 07:15 Entire Visit Hgb 13.2 g/dL (12.9-16.9) 01/08/19 05:36 Hct 37.4 % (37.5-50.1) L 01/08/19 05:36 Total Bilirubin 0.7 mg/dL (0.3-1.0) 01/06/19 19:30 AST 20 Units/L (13-39) 01/06/19 19:30 ALT 21 Units/L (7-52) 01/06/19 19:30 Lipase 30 Units/L (11-82) 01/06/19 19:30 - Impressions Impressions Abdomen Ultrasound 01/07/19 16:14 IMPRESSION: A small amount of sludge is seen within the gallbladder. No evidence of cholelithiasis, biliary obstruction, or acute cholecystitis. D/ / Vanessa Acevedo MD / Vanessa Acevedo MD Interpreting Provider: Vanessa Acevedo MD Consult Discharge Plan - Plan Referrals: Art Singer MD [Primary Care Provider] - (Your appointment has been requested. Our offices will call with an appointment time and date.) <Merlyn Watt - Last Filed: 01/08/19 11:56> Date of Encounter: 01/08/19 Time of Encounter: 10:00 - Time Spent With Patient Total time spent is greater than 50% in coordination of care (as documented) at patient's floor/unit and/or counseling patient: GI History of Present Illness - Data of Consult Requesting Physician: Joseph Waite MD - Consult Narrative History of present illness: Mr. Mccabe is a 53 year old male - Constitutional Vitals: Temp Pulse Resp BP Pulse Ox 98.2 F 56 16 113/68 96 01/08/19 11:04 01/08/19 11:04 01/08/19 11:04 01/08/19 11:04 01/08/19 11:04 Results - Labs CBC & Chem 7: 01/08/19 05:36 01/08/19 05:36 Labs: Last Result Calcium 8.9 mg/dL (8.6-10.3) 01/08/19 05:36 Troponin I < 0.03 ng/mL (< 0.04) 01/07/19 07:15 Entire Visit Hgb 13.2 g/dL (12.9-16.9) 01/08/19 05:36 Hct 37.4 % (37.5-50.1) L 01/08/19 05:36 Total Bilirubin 0.7 mg/dL (0.3-1.0) 01/06/19 19:30 AST 20 Units/L (13-39) 01/06/19 19:30 ALT 21 Units/L (7-52) 01/06/19 19:30 Lipase 30 Units/L (11-82) 01/06/19 19:30 - Impressions Impressions Abdomen Ultrasound 01/07/19 16:14 IMPRESSION: A small amount of sludge is seen within the gallbladder. No evidence of cholelithiasis, biliary obstruction, or acute cholecystitis. D/ / Vanessa Acevedo MD / Vanessa Acevedo MD Interpreting Provider: Vanessa Acevedo MD - Attending Attestation I examined this patient and my medical decision-making was reviewed with the Res ident Physician. I agree with the documented findings, disposition and treatment plan as described except to the extent set forth below. Patient seen currently feeling better on examination abdomen is the soft. Assessment patient with 3-year-old male with epigastric pain cardiac workup has been negative EGD only showed mild gastritis and ultrasound showed sludge. recommendation: F/U with GI as an outpatient if he has recurrent pain then we will need HIDA
[2019-01-08 11:05] VITALS: BP 113/68
[2019-01-08] MEDS: *HR* Morphine 2 MG/ML SYRINGE IVP PRN (11:14)
--- NOTE | 2019-01-08 11:24 | Discharge Summary ---
- NOTES TO OUTPATIENT PROVIDER Notes to Outpatient Provider: f/u with GI within 2 weeks. F/u with PCP within 1 week. f/u with cardiology within a month. Orders not resulted at time of discharge: Pending orders 01/07/19 07:54 NM francine perf SPECT multi [NM] Routine 01/07/19 16:10 Surgical Pathology [PTH] Routine Date of Encounter: 01/08/19 Time of Encounter: 11:21 - Discharge Diagnosis (1) Epigastric pain Priority: Primary Status: Acute Hospital course: Mr. Mccabe is a 53 year old male Patient presented to the emergency room with chest pain. He says it started a few days ago, is in the center of his chest and radiates up into his upper chest. He was admitted here to the hospital about a week ago, was monitored but did not receive any further cardiac testing. He describes the pain as pressure as well as fullness. It is similar to his previous HI in 2012, and states at that time his cardiac enzymes were normal but he ended up having a heart catheter which revealed coronary disease. In the emergency room, patient's vital signs were within normal limits, CBC and BMP were both within normal limits as well. His initial troponin was undetectable. Chest x-ray revealed no acute cardiopulmonary process. EKG performed in the ER showed sinus rhythm with no acute ischemic changes. He was given a dose of nitroglycerin as well as a GI cocktail. 1 L of normal saline was also given and he was started on a heparin drip due to his history of undetectable troponins with cardiac disease. He was sent to the medical floor for further management. Upon arrival to the medical floor, patient's chest pain continued. Repeat EKG showed sinus bradycardia with a probable lateral myocardial infarction, likely old. 2 mg IV morphine was ordered for his pain. Pain has started to improve. Patient states that he has been having this pain on and off for the last 10 days. He says that the nitroglycerin actually made his pain worse. He denies abdominal pain, nausea, vomiting, diarrhea and constipation. He does have a significant family history of coronary artery disease, all members of his family have similar presentation with a troponin negative finding on their workups as well. Further labs showed normal troponin level for 3 consecutive sets. A stress test was negative for ischemia. Pt also underwent a EGD study which showed small hiatal hernia and mild gastritis. RUQ US was performed and showed mild gall bladder sludge without biliary obstruction, cholecystitis, or stone disease. He also had CT chest, abdomen, and pelvis recently and on this admission, which all failed to reveal acute abnormalities. After discussing with pt, cardiology and GI, we will discharge pt today. He will f/u with GI for pathological report of biopsy sample. HIDA scan was discussed with pt by GI as part of further plan. He will continue take PPI. F/u with cardiology and PCP as schedule. Discharge discussed with: patient Time spent discussing smoking cessation with patient: more than 10 minutes - Time Spent with Patient Total time spent providing and/or coordinating discharge services: 45 mins. Greater than 30 minutes - Discharge Medications Prescriptions: Continue hydroCHLOROthiazide [Hydrochlorothiazide] 25 mg PO DAILY Paroxetine HCl [Paxil] 40 mg PO DAILY Rosuvastatin [Crestor] 40 mg PO HS Ranolazine [Ranexa] 1,000 mg PO BID Aspirin Enteric Coated [Aspirin EC] 81 mg PO DAILY #30 tablet. Clopidogrel [Plavix] 75 mg PO DAILY #30 tablet Omeprazole [PriLOSEC] 40 mg PO DAILY@0630 #30 capsule. Dicyclomine [Bentyl] 10 mg PO QID #20 capsule Acetaminophen/Butalbital/Caffe [Fioricet] 1 tab PO PRN PRN PRN Reason: Headache Amlodipine Besylate 10 mg PO DAILY Baclofen [Lioresal] 10 mg PO HS PRN PRN Reason: Muscle Spasm Cholecalciferol (Vitamin D3) [Vitamin D3] 50,000 unit PO QWEEK Lisinopril [Zestril] 20 mg PO DAILY Nitroglycerin 0.3 mg SL Q5M PRN PRN Reason: Chest Pain Propranolol HCl [Innopran Xl] 80 mg PO DAILY Zolpidem [Ambien] 10 mg PO HS PRN PRN Reason: Sleep Isosorbide MONOnitrate (24 HR) [Imdur] 30 mg PO DAILY Home Medications: Paroxetine HCl [Paxil] 40 mg PO DAILY 06/05/18 [History] Ranolazine [Ranexa] 1,000 mg PO BID 06/05/18 [History] Rosuvastatin [Crestor] 40 mg PO HS 06/05/18 [History] hydroCHLOROthiazide [Hydrochlorothiazide] 25 mg PO DAILY 06/05/18 [History] Aspirin Enteric Coated [Aspirin EC] 81 mg PO DAILY #30 tablet. 06/07/18 [Rx] Clopidogrel [Plavix] 75 mg PO DAILY #30 tablet 01/01/19 [Rx] Omeprazole [PriLOSEC] 40 mg PO DAILY@0630 #30 capsule. 01/01/19 [Rx] Dicyclomine [Bentyl] 10 mg PO QID #20 capsule 01/06/19 [Rx] Acetaminophen/Butalbital/Caffe [Fioricet] 1 tab PO PRN PRN 01/07/19 [History] Amlodipine Besylate 10 mg PO DAILY 01/07/19 [History] Baclofen [Lioresal] 10 mg PO HS PRN 01/07/19 [History] Cholecalciferol (Vitamin D3) [Vitamin D3] 50,000 unit PO QWEEK 01/07/19 [History] Isosorbide MONOnitrate (24 HR) [Imdur] 30 mg PO DAILY 01/07/19 [History] Lisinopril [Zestril] 20 mg PO DAILY 01/07/19 [History] Nitroglycerin 0.3 mg SL Q5M PRN 01/07/19 [History] Propranolol HCl [Innopran Xl] 80 mg PO DAILY 01/07/19 [History] Zolpidem [Ambien] 10 mg PO HS PRN 01/07/19 [History] Allergies/Adverse Reactions: Allergy/AdvReac Type Severity Reaction Status Date / Time No Known Allergies Allergy Verified 01/07/19 21:23 Date of admission: 01/06/19 20:47 Primary care physician: Art Singer MD Consults: 01/07/19 03:45 Consult to Cardiology [CONS] Routine Comment: Consulting Provider: Cardiology Hessel Reason for Consult: Continued chest pain, history of troponin negative coronary artery disease with cardiac cath Call Completed: No 01/07/19 09:10 Consult to Gastroenterology [CONS] Routine Consulting Provider: Gastroenterology Aliza Reason for Consult: epigastric pain Call Completed: Yes Anticipated date of discharge: 01/08/19 - Constitutional Vitals: Temp Pulse Resp BP Pulse Ox 98.2 F 56 16 113/68 96 01/08/19 11:04 01/08/19 11:04 01/08/19 11:04 01/08/19 11:04 01/08/19 11:04 General appearance: Present: cooperative, mild distress, A&O X 3, pleasant, answers questions appropriately Exam: PHYSICAL EXAMINATION: GENERAL APPEARANCE: The patient is alert, oriented and in no acute distress. HEENT: Head is normocephalic. The sinuses are nontender. Pupils are equal and reactive. The nares are patent. Oropharynx clear without lesions. NECK: Supple without lymphadenopathy. HEART: Regular rate and rhythm. LUNGS: No crackles or wheezes are heard. ABDOMEN: Soft, nontender, nondistended with good bowel sounds heard. Inguinal area is normal. EXTREMITIES: Without cyanosis, clubbing or edema. NEUROLOGICAL: Gross nonfocal. SKIN: Warm and dry without any rash. - Patient Status Disposition: Home, Self-Care Condition: Fair Functional capacity at discharge: independent ambulation Overall status at discharge: patient is progressing back to baseline - Discharge Instructions Follow Up With: Art Singer MD [Primary Care Provider] - (Your appointment has been requested. Our offices will call with an appointment time and date.) - Diet and Activity Activity: increase activity as tolerated Diet: advance to your usual diet
== END 2019-01-08 14:26 | disposition home or self-care (01) ==
LOC: 3BNU 19:11 → EMEROOARM 19:11 → 3BNU 21:28
PROVIDERS: ADMIT Family Medicine; ATTEND Family Medicine
PROC: ENDOEBX (2019-01-07 13:30)

== ENCOUNTER 2020-08-15 04:56 | Observation (INO) ==
[2020-08-15] MEDS ORDERED: Isovue-370 500 ML BOTTLE IVP ONE (05:18)
[2020-08-15] MEDS ORDERED: Aspirin 81 MG TAB.CHEW PO ONE (05:32)
[2020-08-15 05:43] LABS: Basophils % 0.4 %; Eosinophils # 0.3 K/mcL (0.0-0.6); Eosinophils % 4.1 %; Hemoglobin 14.8 g/dL (12.9-16.9); Immature Granulocytes % 0.1 % (0-4); Lymphocytes % 37.1 %; Mean Corpuscular HGB Conc 35.2 g/dL (31.6-35.5); Mean Corpuscular Volume 93.8 fL (83.0-100.0); Mean Platelet Volume 11.2 fL (9.4-12.4); Monocytes # 0.5 K/mcL (0.0-1.3); Monocytes % 6.6 %; Neutrophils # 4.2 K/mcL (1.6-8.9); Platelet Count 154 K/mcL (140-400); Red Blood Count 4.48 M/mcL (4.19-5.50); Red Cell Distribution Width 11.7 % (11.5-14.5); Segmented Neutrophils % 51.7 %
[2020-08-15 05:49] LABS: Prothrombin Time 11.2 Seconds (9.4-12.1)
[2020-08-15 05:52] LABS: Activated Partial Thrombo Time 32.6 Seconds (26.0-36.0)
[2020-08-15 05:58] LABS: Alanine Aminotransferase 17 Units/L (7-52); Albumin 4.2 g/dL (3.5-5.7); Albumin/Globulin Ratio 1.7 (1.1-2.2); Alkaline Phosphatase 67 Units/L (34-104); Aspartate Amino Transferase 16 Units/L (13-39); BUN/Creatinine Ratio 20 (6-26); Bilirubin,Direct 0.1 mg/dL (0.0-0.2); Bilirubin,Indirect 0.3 mg/dL (0.0-1.0); Bilirubin,Total 0.4 mg/dL (0.3-1.0); Blood Urea Nitrogen 15 mg/dL (6-20); Carbon Dioxide 28 mEq/L (23-29); Chloride 101 mEq/L (98-107); Globulin 2.5 g/dL (2.4-3.5); Glucose 133 mg/dL (70-105); Lipase 57 Units/L (11-82); Osmolality,Calculated 287 (280-300); Potassium 3.7 mEq/L (3.5-5.1); Sodium 137 mEq/L (136-145); Total Protein 6.7 g/dL (6.4-8.9); Troponin I < 0.03 ng/mL (< 0.04); eGFR For African Americans > 60 (> 60); eGFR For Non-African Americans > 60 (> 60)
[2020-08-15 06:24] LABS: Bilirubin,Urine Negative (Negative); Blood,Urine Negative (Negative); Clarity,Urine Clear (Clear); Color,Urine Yellow (Yellow); Glucose,Urine (UA) Normal (Normal); Ketones,Urine Negative (Negative); Leukocyte Esterase,Urine Negative (Negative); Nitrite,Urine Negative (Negative); PH,Urine 5.5 pH Units (5.0-8.0); Protein,Urine Negative (Neg-Trace); Specific Gravity,Urine 1.024 (1.010-1.025); Urobilinogen,Urine Normal (Normal)
[2020-08-15] MEDS ORDERED: Ondansetron 4 MG/2 ML VIAL IVP PRN (07:58)
[2020-08-15] MEDS ORDERED: Acetaminophen 325 MG TABLET PO PRN (07:58)
[2020-08-15] MEDS ORDERED: Naloxone 0.4 MG/ML INJ IVP PRN (07:58)
[2020-08-15 12:11] LABS: Adenovirus Not Detected (Not Detect); Bordetella Pertussis Not Detected (Not Detect); Chlamydophila pneumoniae Not Detected (Not Detect); Coronavirus 229E Not Detected (Not Detect); Coronavirus HKU1 Not Detected (Not Detect); Coronavirus NL63 Not Detected (Not Detect); Coronavirus OC43 Not Detected (Not Detect); Human Metapneumovirus Not Detected (Not Detect); Human Rhinovirus/Enterovirus Not Detected (Not Detect); Influenza A Subtype 2009 H1 Not Detected (Not Detect); Influenza B Not Detected (Not Detect); Mycoplasma pneumoniae Not Detected (Not Detect); Parainfluenza Virus 1 Not Detected (Not Detect); Parainfluenza Virus 2 Not Detected (Not Detect); Parainfluenza Virus 3 Not Detected (Not Detect); Parainfluenza Virus 4 Not Detected (Not Detect); Respiratory Syncytial Virus Not Detected (Not Detect); SARS-CoV-2 Not Detected (Not Detect)
[2020-08-15] MEDS ORDERED: Nitroglycerin 0.4 MG TAB.SUBL SL PRN (12:35)
[2020-08-15] MEDS ORDERED: Baclofen 10 MG TABLET PO PRN (13:29)
[2020-08-15] MEDS: *HR* Heparin 5,000 UNIT/ML VIAL SQ SCH ×2 (14:56→21:13)
[2020-08-15] MEDS: Ranolazine 500 MG TAB.ER.12H PO SCH ×2 (14:57→21:13)
[2020-08-15] MEDS: Propranolol LA (24 HR) 60 MG CAP.SA.24H PO SCH (14:57)
[2020-08-15] MEDS: lisinopriL 20 MG TABLET PO SCH (14:57)
[2020-08-15] MEDS: Isosorbide MONOnitrate (24 HR) 30 MG TAB.ER.24H PO SCH (14:58)
[2020-08-15] MEDS ORDERED: Ranolazine 500 MG TAB.ER.12H PO SCH (21:00)
[2020-08-15] MEDS ORDERED: traZODone 50 MG TABLET PO ONE (21:22)
[2020-08-16] MEDS: *HR* Heparin 5,000 UNIT/ML VIAL SQ SCH ×2 (05:14→15:06)
[2020-08-16 06:03] LABS: Immature Granulocytes % 0.2 % (0-4); Red Cell Distribution Width 11.8 % (11.5-14.5)
[2020-08-16 06:05] LABS: Basophils % 0.3 %; Eosinophils # 0.3 K/mcL (0.0-0.6); Eosinophils % 4.6 %; Hematocrit 40.8 % (37.5-50.1); Hemoglobin 13.8 g/dL (12.9-16.9); Immature Platelets 8.2 % (1.1-6.1); Lymphocytes # 2.8 K/mcL (0.6-4.6); Lymphocytes % 44.4 %; Mean Corpuscular HGB Conc 33.8 g/dL (31.6-35.5); Mean Corpuscular Hemoglobin 32.2 pg (28.0-33.3); Mean Corpuscular Volume 95.1 fL (83.0-100.0); Mean Platelet Volume 11.4 fL (9.4-12.4); Monocytes # 0.4 K/mcL (0.0-1.3); Monocytes % 6.7 %; Neutrophils # 2.8 K/mcL (1.6-8.9); Platelet Count 137 K/mcL (140-400); Red Blood Count 4.29 M/mcL (4.19-5.50); Segmented Neutrophils % 43.8 %; White Blood Count 6.3 K/mcL (4.3-11.1)
[2020-08-16 06:25] LABS: BUN/Creatinine Ratio 16 (6-26); Blood Urea Nitrogen 13 mg/dL (6-20); Carbon Dioxide 27 mEq/L (23-29); Chloride 104 mEq/L (98-107); Glucose 118 mg/dL (70-105); Osmolality,Calculated 287 (280-300); Potassium 3.8 mEq/L (3.5-5.1); Sodium 138 mEq/L (136-145); eGFR For African Americans > 60 (> 60); eGFR For Non-African Americans > 60 (> 60)
[2020-08-16] MEDS ORDERED: PARoxetine 30 MG TABLET PO SCH (09:00)
[2020-08-16] MEDS ORDERED: Cholecalciferol (D-3) 1,000 UNIT (25MCG) TABLET PO SCH (09:00)
[2020-08-16] MEDS ORDERED: Propranolol LA (24 HR) 60 MG CAP.SA.24H PO SCH (09:00)
[2020-08-16] MEDS ORDERED: amLODIPine 5 MG TABLET PO SCH (09:00)
[2020-08-16] MEDS ORDERED: lisinopriL 20 MG TABLET PO SCH (09:00)
[2020-08-16] MEDS ORDERED: hydroCHLOROthiazide 25 MG TABLET PO SCH (09:00)
[2020-08-16] MEDS ORDERED: Aspirin Enteric Coated 81 MG Tablet PO SCH (09:00)
[2020-08-16] MEDS ORDERED: Isosorbide MONOnitrate (24 HR) 30 MG TAB.ER.24H PO SCH (09:00)
[2020-08-16] MEDS ORDERED: Regadenoson 0.4 MG/5 ML SYRINGE IVP ONE (09:23)
[2020-08-16 10:59] VITALS: BP 118/68
[2020-08-16] MEDS: Ranolazine 500 MG TAB.ER.12H PO SCH (10:59)
[2020-08-16] MEDS: Isosorbide MONOnitrate (24 HR) 30 MG TAB.ER.24H PO SCH (11:00)
[2020-08-16] MEDS: lisinopriL 20 MG TABLET PO SCH (11:00)
[2020-08-16] MEDS: Propranolol LA (24 HR) 60 MG CAP.SA.24H PO SCH (11:00)
== END 2020-08-16 16:01 | disposition home or self-care (01) ==
LOC: SUATTDRO → EMEROOARM 04:56 → CDU 04:56 → SUATTDRO 07:57 → CDU 08:45 → 3BNU 18:38
PROVIDERS: ADMIT Pharmacist; ATTEND Internal Medicine